=== PATIENT | female | born 1950 | race Caucasian/White ===

== ENCOUNTER → 2017-02-05 | Outpatient (CLI) | payer OTHER ==
[~2017-02-05] MED LIST: AMLODIPINE BESY10 MG; AMLODIPINE BESY10 MG PO; ASPIRIN325; ATENOLOL 100MG100 MG PO; B COMPLEX WITH1 EACH PO; B-100 COMPLEX1 EAC1; B12INJ PO; BENADRYL25 MG PO; CALCIUM + D3 E1 EACH PO; CALICUM 500+D1 EACH; CHLORTHALIDONE25 MG PO; CLARITIN10 M2 PO; COZAAR 50 MG TA50 M2 PO; ENALAPRIL MALEA20 MG; EVISTA; EVISTA60 MG PO; FISH OIL 1,0001 EAC5; FISH OIL 1,0001 EAC5 PO; FUROSEMIDE 20 M20 M1; FUROSEMIDE 20 M20 M1 PO; GEMFIBROZIL 60600 MG; GEMFIBROZIL 60600 MG PO; GLUCOSAMINE CH1 EAC7; GLUCOSAMINE-MS1 EAC3 PO; LEVAQUIN 500 M500 MG PO; LIPITOR 20 MG T20 M1 PO; LOPRESSOR100 MG; MULTI FOR HER400 MCG PO; NORCO 5-325 TA1 EACH PO; PEPCID40 MG PO; POTASSIUM20 PO; PRAVASTATIN SOD20 MG; PREDNISONE 10 M10 MG PO; PREDNISONE 20 M20 M1 PO; TOPROL XL100 MG PO; VITAMIN B-12500 MCG; VITAMIN D-32000 UNIT; VITAMIN D32000 UNI1 PO; VITAMIN E800 UNIT; VITAMIN E800 UNIT PO; VITAMINC500; VITAMINC500 PO; ZANTAC 150MG T150 M1 PO; ZOFRAN ODT4 MG PO; [UNRECOGNIZED DRUG - OTHER] PO
== END ==
LOC: RAD 01:23
DX: Z12.31 Encounter for screening mammogram for malignant neoplasm of breast (principal)

== ENCOUNTER → 2018-02-06 | Outpatient (CLI) | payer OTHER | LOC: RAD 01:05 | DX: Z12.31 Encounter for screening mammogram for malignant neoplasm of breast (principal) ==

== ENCOUNTER → 2019-02-17 | Outpatient (CLI) | payer OTHER | LOC: RAD 11:52 | DX: Z12.31 Encounter for screening mammogram for malignant neoplasm of breast (principal) ==

== ENCOUNTER 2019-04-28 13:31 | Emergency (ER) | payer OTHER ==
[~2019-04-28] VITALS: Ht 157.5 cm; Wt 55.3 kg
[2019-04-28 14:06] LABS: ABSOLUTE NEUTROPHILS 4.9 thou/uL (1.4-8.2); EOSINOPHILS 1.2 % (0.0-3.0); HEMOGLOBIN 14.6 gm/dL (12.0-15.0); MCH 31.9 pg (26.0-34.0); MCHC 33.2 g/dL (28.0-37.0); MCV 96.1 fL (80.0-100.0); MONOCYTES 6.8 % (1.0-8.0); PLATELET COUNT 297 thou/uL (150-400); RBC 4.58 mil/uL (4.20-5.00); RDW 13.6 % (10.5-14.5); WBC 8.4 thou/uL (4.0-11.0)
[2019-04-28 14:12] LABS: ANION GAP 10 mmol/L (7-16); BUN 13 mg/dL (7-18); CALCIUM 9.7 mg/dL (8.5-10.1); CHLORIDE 102 mmol/L (98-107); CO2 28 mmol/L (21-32); CREATININE 0.7 mg/dL (0.6-1.0); GLUCOSE 89 mg/dL (74-106); POTASSIUM 3.7 mmol/L (3.5-5.1); SODIUM 140 mmol/L (136-145)
[2019-04-28] MEDS ORDERED: PRINIVIL10 MG PO (14:17)
[2019-04-28 14:21] LABS: TROPONIN-I <0.06 ng/mL (<0.06)
[2019-04-28 14:53] VITALS: BP 183/87
--- NOTE | 2019-04-28 17:18 | EKG ---
[place] [address] [facility] [place] [address] ELECTROCARDIOGRAM REPORT Name: AKILA DELEON 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 : 1950 Requested By: Cristiano Rodgers Order Number: [id number] MD: Steven Thurman Measurements Intervals [place] Rate: 65 P: 36 GA: 151 QRS: 12 QRSD: 96 T: 80 QT: 452 QTc: 470 Interpretive Statements Sinus rhythm Probable anteroseptal infarct, old Compared to ECG 02/11/2015 11:30:32 Sinus bradycardia no longer present septal Q waves more prominent Electronically Signed On 04-28-2019 17:17:48 CDT by Steven Thurman [email or web address] <ELECTRONICALLY SIGNED> By: Steven Thurman MD, [facility] 04/28/19 1717 134 134 Steven Thurman MD, FAC /EPI
== END 2019-04-28 14:53 | disposition home or self-care (01) ==
LOC: ER 13:31
PROVIDERS: Emergency Medicine
DX: I10 Essential (primary) hypertension (principal); R42 Dizziness and giddiness; E78.00 Pure hypercholesterolemia, unspecified; F17.210 Nicotine dependence, cigarettes, uncomplicated; Z90.49 Acquired absence of other specified parts of digestive tract; Z88.0 Allergy status to penicillin

== ENCOUNTER 2019-05-12 15:23 | Emergency (ER) | payer OTHER ==
[~2019-05-12] VITALS: Ht 157.5 cm; Wt 55.3 kg
[~2019-05-12 15:23] MED LIST changes: +PRINIVIL10 MG PO
[2019-05-12 15:44] LABS: ABSOLUTE NEUTROPHILS 3.9 thou/uL (1.4-8.2); EOSINOPHILS 1.6 % (0.0-3.0); HEMATOCRIT 41.4 % (37.0-47.0); HEMOGLOBIN 13.8 gm/dL (12.0-15.0); LYMPHOCYTES 34.3 % (24.0-44.0); MCH 31.9 pg (26.0-34.0); MCHC 33.3 g/dL (28.0-37.0); MCV 95.7 fL (80.0-100.0); MONOCYTES 6.2 % (1.0-8.0); PLATELET COUNT 344 thou/uL (150-400); POLYS 56.9 % (36.0-66.0); RBC 4.33 mil/uL (4.20-5.00); RDW 13.4 % (10.5-14.5); WBC 6.8 thou/uL (4.0-11.0)
[2019-05-12] MEDS ORDERED: LISINOPRIL10 MG PO (15:49)
[2019-05-12 15:53] LABS: ANION GAP 7 mmol/L (7-16); BUN 14 mg/dL (7-18); CALCIUM 9.4 mg/dL (8.5-10.1); CHLORIDE 103 mmol/L (98-107); CO2 28 mmol/L (21-32); CREATININE 0.7 mg/dL (0.6-1.0); GLUCOSE 124 mg/dL (74-106); POTASSIUM 3.8 mmol/L (3.5-5.1); SODIUM 138 mmol/L (136-145)
[2019-05-12 16:03] LABS: ALBUMIN 3.5 g/dL (3.4-5.0); SGOT 14 U/L (15-37); SGPT 13 U/L (30-65); TOTAL BILIRUBIN 0.4 mg/dL (<0.1-1.0); TOTAL PROTEIN 7.1 g/dL (6.4-8.2); TROPONIN-I <0.06 ng/mL (<0.06)
[2019-05-12] MEDS ORDERED: ASA81BEC PO (16:10)
[2019-05-12] MEDS ORDERED: NORVASC5 M1 PO (17:52)
[2019-05-12 18:18] VITALS: BP 197/101
--- NOTE | 2019-05-13 16:57 | EKG ---
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
== END 2019-05-12 18:26 | disposition home or self-care (01) ==
LOC: ER 15:23
PROVIDERS: Emergency Medicine
DX: R07.89 Other chest pain (principal); I10 Essential (primary) hypertension; Z90.49 Acquired absence of other specified parts of digestive tract; E78.00 Pure hypercholesterolemia, unspecified; F17.210 Nicotine dependence, cigarettes, uncomplicated; Z88.0 Allergy status to penicillin

== ENCOUNTER → 2020-02-19 | Outpatient (CLI) | payer OTHER ==
[~2020-02-19] MED LIST changes: +ASA81BEC PO; +LISINOPRIL10 MG PO; +NORVASC5 M1 PO
== END ==
LOC: RAD 13:52
PROVIDERS: ATTEND Family Medicine
DX: Z12.31 Encounter for screening mammogram for malignant neoplasm of breast (principal)

== ENCOUNTER → 2020-07-12 | Outpatient (CLI) | payer OTHER | LOC: SJCVC 15:29 | PROVIDERS: ATTEND Internal Medicine | DX: I10 Essential (primary) hypertension (principal); E78.5 Hyperlipidemia, unspecified; R07.9 Chest pain, unspecified; R60.9 Edema, unspecified; M81.0 Age-related osteoporosis without current pathological fracture; Z87.891 Personal history of nicotine dependence; Z79.82 Long term (current) use of aspirin; Z79.899 Other long term (current) drug therapy; Z72.89 Other problems related to lifestyle; Z88.0 Allergy status to penicillin ==

== ENCOUNTER 2020-10-09 14:16 | Emergency (ER) | payer OTHER ==
[~2020-10-09] VITALS: Ht 157.5 cm; Wt 60.3 kg
--- NOTE | ~2020-10-09 | EMS ---
[address] [address] EMS Patient Care Report Name: AKILA DELEON Room #: DEP KIMBERLY P[place]#: [id number] Admission: 10/09/20 Attend Phys: Discharge: 10/09/20 Date of : 54 Report #: [id number] THIS REPORT FOR: //name// Report Transmitted: 10/10/2020 10:16 EMS Care Summary [place], [place] Incident [id number] @ 10/09/2020 13:44 Incident Location [address] [place], [place] [id number] Patient ROLDAN DELEON Female, 70 Years 1950 Patient Address [address] [place] [address] Patient History Hypertension (HTN),Hyperlipidemia, Patient Allergies Penicillin allergy, Patient Medications Other, Pantoprazole, Rosuvastatin, Amlodipine, Lisinopril, Chief Complaint I think my foot is broken Disposition Transported No Lights/[place] Dis[place] Reason Falls Transported To [place] [facility] Narrative Called for a fall. Upon arrival, pt was IGNACIO x 3 sitting in a chair in minor distress. Pt c/o pain to the left foot area after falling when she stood up. She said her foot fell asleep while on the toilet and when she stood up she lost her balance and fell. She c/o pain to the left foot and it is swollen. [address] [address] EMS Patient Care Report Name: AKILA DELEON Room #: [facility]#: [id number] Admission: 10/09/20 Attend Phys: Discharge: 10/09/20 Date of : 54 Report #: [id number] She requested transport to [facility] ER. She was moved to the EMS cot and loaded into the ambulance w/o incident. Vitals obtained. Attempted IV x 2. Vitals repeated. En route: No changes. RR to ER. Arrived: pt taken to ER #2 and moved to their bed w/o incident. Pt care & report to ER staff. Initial Vitals @13:58P: 80,R: 16,BP: 145/109,Pain: 8/10,GCS: 15,Revised Trauma: 12, @14:06P: 71,R: 16,BP: 146/82,Pain: 8/10,GCS: 15,Glucose: 81,CO: 5,SpO2: 97,Revised Trauma: 12, Assessments @13:52MENTAL:Person Oriented,Time Oriented,Event Oriented,Place Oriented,SKIN:HEENT:LUNG SOUNDS:ABDOMEN:PELVIS//GI:EXTREMITIES:Left Leg: ARIANNA,Left Leg: FRA,Left Leg: Other,Left Arm: No Abnormalities,Right Arm: No Abnormalities,Right Leg: No Abnormalities,PULSE:NEURO:No Abnormalities, Impression Injury of Foot Procedures @13:55StretcherResponse: Unchanged@13:52ALS AssessmentResponse: UnchangedSucceeded@14:00Saline Lock cc (18 ga) Site: Forearm-LeftResponse: UnchangedFailed@14:02Saline Lock cc (20 ga) Site: Hand-LeftResponse: UnchangedFailed Timeline 13:36,Call Received 13:36,Dispatch Notified 13:44,Dispatched 13:45,En Route 13:50,On Scene 13:52,At Patient 13:52,ALS Assessment,Response: UnchangedSucceeded, 13:55,Stretcher,Response: Unchanged 13:58,BP: 145/109 M,PULSE: 80,RR: 16 R,SPO2: Ox,ETCO2: ,BG: ,PAIN: 8,GCS: 15, 14:00,Saline Lock cc 18 ga Site: Forearm-Left,Response: UnchangedFailed, 14:02,Saline Lock cc 20 ga Site: Hand-Left,Response: UnchangedFailed, 14:05,Depart Scene 14:06,BP: 146/82 M,PULSE: 71,RR: 16 R,SPO2: 97 Ox,ETCO2: ,B,PAIN: 8,GCS: 15, 14:11,At Destination 14:31,Call Closed Disclaimer v1.1 Copyright 2020 [employer] This EMS Care Summary contains data elements from the applicable legal record [address] [address] EMS Patient Care Report Name: AKILA DELEON Room #: EDITH Paniagua#: [id number] Admission: 10/09/20 Attend Phys: Discharge: 10/09/20 Date of : 54 Report #: [id number] (which may be displayed differently). It is designed to provide pertinent information for the following purposes: continuity of care, clinical quality, and state data reporting. The complete legal record is available to ED staff and administrators of the receiving hospital in [facility]'s Patient Tracker. All data is provided "as is."
[2020-10-09] MEDS ORDERED: ASA81BEC PO (14:28)
[2020-10-09] MEDS ORDERED: STIOLTO RESPIMAT4 GM INH (14:29)
[2020-10-09] MEDS ORDERED: ROSUVASTATIN CA10 MG PO (14:29)
[2020-10-09] MEDS ORDERED: PROTONIX40 M2 PO (14:30)
[2020-10-09] MEDS ORDERED: ULTRAM 50MG TAB50 MG PO (15:17)
[2020-10-09 15:39] VITALS: BP 129/74
== END 2020-10-09 15:41 | disposition home or self-care (01) ==
LOC: ER 14:16
DX: S92.355A Nondisplaced fracture of fifth metatarsal bone, left foot, initial encounter for closed fracture (principal); I10 Essential (primary) hypertension; E78.5 Hyperlipidemia, unspecified; Z90.49 Acquired absence of other specified parts of digestive tract; F17.210 Nicotine dependence, cigarettes, uncomplicated; Z79.82 Long term (current) use of aspirin; Z79.899 Other long term (current) drug therapy; Z88.0 Allergy status to penicillin; W18.39XA Other fall on same level, initial encounter; Y93.89 Activity, other specified; Y92.89 Other specified places as the place of occurrence of the external cause; Y99.8 Other external cause status

== ENCOUNTER → 2021-07-12 | Outpatient (CLI) | payer OTHER ==
[~2021-07-12] MED LIST changes: +PROTONIX40 M2 PO; +ROSUVASTATIN CA10 MG PO; +STIOLTO RESPIMAT4 GM INH; +ULTRAM 50MG TAB50 MG PO
== END ==
LOC: SJCVC 15:01
PROVIDERS: ATTEND Internal Medicine Cardiovascular Disease
DX: I10 Essential (primary) hypertension (principal); E78.5 Hyperlipidemia, unspecified; I73.9 Peripheral vascular disease, unspecified; R91.1 Solitary pulmonary nodule; M81.0 Age-related osteoporosis without current pathological fracture; Z87.891 Personal history of nicotine dependence; Z72.89 Other problems related to lifestyle; Z79.899 Other long term (current) drug therapy; Z82.49 Family history of ischemic heart disease and other diseases of the circulatory system; Z88.0 Allergy status to penicillin